=== PATIENT | female | born 1970 | race Caucasian/White ===

== ENCOUNTER 2018-09-17 10:55 | Observation (INO) | payer OTHER ==
--- NOTE | 2018-09-16 21:49 | PDGENHP ---
History and Physical - Chief Complaint LEFT HIP PAIN - History of Present Illness Diagnosis: 1. 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 ~Sylvia enjoys skiing, snowboarding, skinning uphill, mountain biking, runn. Lida's~left~hip pain started early~2017, with~some~recalled trauma or injury , and with no~previous complaints. Was on a short 3 mile run and noticed that L hip all of a sudden was sore.~Sylviadoes not have~a known history of hip dysplasia. Presentation today is of~anterior~left~hip pain - deep, groin. ~The hip~does~ wake her~at night and does not~click and catch on her. Sitting~does not present a problem~for her.~Sylviadoes~report suffering from lower back pain episodes. Sylviahas not~participated in physical therapy and has not~tried other conservative measures including - only has reduced activity level.~She~has not~ received sufficient symptomatic improvement. Sylviahas~utilized medication for pain management, including NSAID.~Sylvia has used medication for a couple of months. Sylviahas occasional~issues with the~right~hip. ~ Sylviaunderstands that she~has a hip and pelvis problem which should be researched and wishes to get a better understanding of her~hip status, followed by an establishment of a treatment strategy, hoping she~would be able to get back to her~well being active life. History: Past medical history:~~ Patient~~has a past medical history of Asthma; Asymptomatic varicose veins; Asymptomatic varicose veins; and Motion sickness. She also has no past medical history of Arthritis; Arthritis; Diabetes mellitus (HC code); Diabetes mellitus (HC code); Hearing loss; Hearing loss; Hyperlipidemia; Hyperlipidemia; Hypertension; Hypertension; Seizures (HC code); Seizures (HC code); Sickle cell anemia (HC code); Sickle cell anemia (HC code); Syncope and collapse; Syncope and collapse; Vision abnormalities; or Vision abnormalities. Relevant familial history:~mother had a PE in 30s Past surgical history:~ L3-S1~anterior and~posterior spinal fusion 2015 R lateral meniscectomy by Jovan 12/14 Bone spur removal from heel as teenager Ovarian cysts removal 1998 Breast augmentation 2013 Sylivadenies problematic issues with general anesthesia in the past. I have reviewed, verified and agree with the past medical, surgical, family and social history. Current Medications:~has a current medication list which includes the following prescription(s): ibuprofen. ALLERGIES:~is allergic to chlorhexidine towelette and penicillins. Objective: Physical Examination: Sylviais 5~feet 5~inches tall and weighs 130~Lbs. Lida~is AAO x3; she~is well-nourished, in NAD. Skin is warm and dry. ~Breathing is non-labored. ~CV with RRR by pulse. Abdomen is soft, NTND. Currently,~she~walks with a normal~gait. Trendelenburg sign is~negative~and proprioception is normal,~both~sides. She~presents with mild~signs of joint laxity. Beightons Score:~3 She~is fit looking. ~~ Lower spine examination is~negative~for sciatic or femoral nerve irritation with negative~SLR &~femoral stretch tests. Range of motion of the spine is normal~for flexion, extension, and rotations, with no~associated pain. Strength, Sensation and pulses are~normal -~bilaterally Ankles and knees exams are~normal~and no~mal-alignment is evident. She~has no leg length discrepancy. Thigh circumference is~symmetric~with no evidence for muscle atrophy~on both~ sides. Hip ROM (degrees): FL ER At 90~hip FL IR At 90~hip FL AB AD EX IR Neutral hip ER Neutral hip R 110 40 35 30 10 10 50 35 L 105 40 15 30 5 10 40 30 Specific hip and pelvis tests: Impingement Test NATALIE Roll Add. Longus R ++ ++ Negative ++ L +++ +++ Negative ++ Glut. Med ITB Posterior Imp R Negative 5/5 strength Negative 5/5 strength Negative L Negative 5/5 strength Negative 5/5 strength Negative Squeeze test measured~normal Bony Symphysis pubis is~pain free~to touch while concentric activity of the rectus abdominis, does not~produce pain at its insertion. Ilio Psos specific tests are~positive for pain during cycling for~the left hip~ and remarkable for painful snap HF has~pain~the left hip. Lateral and posterior~capsule tenderness on the left and posterior on the right Greater trochanteric burse is~painful~on~both hips~- not reason why here today though Piriformis tests: FAIR is~negative,~with no~local signs of neuritis related to sciatic nerve. SIJs examination is~normal~with normal~NATALIE in relation and local tenderness. Hamstrings tests are~normal~~both hips. On a daily basis, the following percentages reflect~Lida's overall total pain : Deep hip~and hip flexion:~100%~(cannot really distinguish between either for patient) Imaging: Radiology studies which I have personally reviewed, analyzed and measured are below: XR: AP of the hip and pelvis: Performed in a~good~technique Coccyx to pubic symphysis distance~2.3~cm. 0~degrees caudal [place] Lines are~preserved. No~Pathological signs are seen in the Symphysis Pubis. No~Pathological signs are seen at the Ischial tuberosity. ~ Specific measurements show: NSA~ LCE Sourcil~Angle Sharp's angle Lat. Cam Lat. Pincer C.Over~sign Head~Coverage % ATDmm R 128 37 2 34 + N 12:30 88 + L 127 34 3 36 ++ + 12:30 85 + Pos. wall sign ISS NAD ~~Dysplasia Comments R Negative Negative 12.3~mm Negative L Negative Negative 15.2~mm Negative Sclerosis Sup. Lat. OA Cysts Joint Space-WBZ Joint Space-Medial R + Negative Negative 4.6~mm 3.8~mm L + Negative Negative 3.2~mm 4.6~mm X Table lateral: Anterior cam lesion is~seen~on both hips. Alpha Angle: ~ Right~57~degrees (60 on AP) Left~59~degrees (64 degrees on AP) Impression and plan:~ Lida~is a 48 y.o.~active female~suffering from symptomatic Left~hip pain due to Left~Femoroacetabular impingement (JOSE CARLOS) Cam type~causing significant disability to her~and altering her~sport and life activities. Physical examination, imaging, and~her~story correspond with the diagnosis mentioned above. I explained that femoroacetabular impingement (JOSE CARLOS) arises due to a bony or soft tissue conflict between the femur (ball) and acetabulum (socket) caused by an abnormality in the shape of the hip joint. Over time, repetitive impingement can result in damage to the labrum and adjacent surface cartilage within the socket, ultimately giving rise to progressive osteoarthritis of the hip. I explained that although a labral tear can be a source of pain, it is rarely the root of the problem and typically occurs secondary to an underlying abnormality in the shape and mechanics of the hip joint. ~ I reviewed conservative treatment options for JOSE CARLOS including activity modification to avoid positions of impingement, physical therapy, non-steroidal anti-inflammatory medications, and various injections (corticosteroid and PRP) aimed at reducing inflammation in the hip joint or/and preventing dynamic impingement. PRP injections may promote healing and reduce symptoms in certain cases but it will not repair chronically damaged tissue. Although these measures may help to buy time and reduce current level of symptoms, they are not a definitive solution to the problem given the underlying abnormality in the shape of the hip joint. Patients who have failed conservative management and continue to experience symptoms are candidates for hip arthroscopy, a minimally invasive surgery that can definitively address the underlying problem. Hip arthroscopy typically includes treating the labrum with either repair or reconstruction of the torn labrum; as well as addressing the underlying abnormalities by restoring the normal shape to the hip joint. ~If the cartilage is damaged a Microfracture surgical procedure may also be necessary to help stimulate the growth of fibrocartilage. ~If a patient requires a labral reconstruction or a Microfracture, the initial rehabilitation from the surgery may take longer, but the longterm results are typically favorable. I have explained that because of her age and gender, the results of hip arthroscopy are less reproducible/predictable than with younger patients or male patients of the same age. Lida~will review the info presented. In order to obtain more detailed information regarding the alignment, orientation, and shape of the bony hip and pelvis I will order a CT scan to be performed. The results of the CT scan, including femoral torsion and acetabular version measured values and 3D images, will aid me in deciding on the best treatment strategy and surgical pre-planning. In order to better evaluate the soft tissues and cartilage of the hip joint, I will order an MRI scan. We will refer Lida for proper PT to try and improve her symptoms. Sylviais happy with this plan. I have also supplied~her~with handouts, outlining the expected surgical treatment and rehab involved. I wish~Sylviaall the best, ~~ Debi Muñoz MD History Information - Allergies/Home Medication List Allergies/Adverse Reactions: chlorhexidine [From Hibiclens] Allergy (Verified 08/16/18 10:15) Rash Penicillins Allergy (Verified 08/16/18 10:02) anaphylactic Home Medications: Naproxen 08/16/18 [Last Taken Unknown] Probiotic 08/16/18 [Last Taken Unknown] I have personally reviewed and updated: medical history - Social History Smoking Status: Never smoked Review of Systems Review of Systems: Physical Exam Physical Exam:
[2018-09-17] MEDS ORDERED: ACETAMINOPHEN 500 MG TAB PO ONE (11:19)
[2018-09-17] MEDS ORDERED: PREGABALIN 150 MG CAP PO ONE (11:19)
[2018-09-17] MEDS ORDERED: CLINDAMYCIN 900 MG/DEXTROSE 50 ML IV ONE (11:19)
[2018-09-17] MEDS ORDERED: LR 1,000 ML IV ONE (11:21)
[2018-09-17] MEDS ORDERED: MIDAZOLAM 2 MG/2 ML VIAL IVP ONE (14:25)
--- NOTE | 2018-09-17 14:25 | PDANEPAE ---
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 - no cardiac diagnosis and is no longer followed - Pulmonary History Hx COPD: No Hx Asthma/Reactive Airway Disease: Yes Hx Recent Upper Respiratory Infection: No Hx Oxygen in Use at Home: No Hx Sleep Apnea: No Sleep Apnea Screening Result - Last Documented: Negative Pulmonary History Comment: states mild asthma when exercising - Neurologic History Hx Cerebrovascular Accident: No Hx Seizures: No Hx Dementia: No - Endocrine History Hx Diabetes: No - Renal History Hx Renal Disorders: No - Liver History Hx Hepatic Disorders: No - Neurological & Psychiatric Hx Hx Neurological and Psychiatric Disorders: No - Cancer History Hx Cancer: No - Congenital Disorder History Hx Congenital Disorders: No - GI History Hx Gastrointestinal Disorders: No - Other Health History Other Health History: wears glasses. States skin sensitive ("itchy") to the product they used to clean her skin with her last surgery. Thinks it was hibiclens. - Chronic Pain History Chronic Pain: No - Surgical History Prior Surgeries: right knee menuscus repair, 2018. L3-S1 fusion, 2016. right breast lump removed, 2016. breast implants & revisions, 2006. ovarian cysts removed, 1998. right heel spur removed, 1987 ANE Review of Systems Review of systems is: negative Review of Systems: - Exercise capacity METS (RN): 6 METS ANE Patient History - Allergies Allergies/Adverse Reactions: chlorhexidine [From Hibiclens] Allergy (Verified 08/16/18 10:15) Rash Penicillins Allergy (Verified 08/16/18 10:02) anaphylactic - Home Medications Home medications: home medication list seen and reviewed Home Medications: Naproxen 08/16/18 [Last Taken 09/10/18] Probiotic 08/16/18 [Last Taken 09/17/18] - NPO status NPO Since - Liquids (Date): 09/17/18 NPO Since - Liquids (Time): 08:30 NPO Since - Solids (Date): 09/16/18 NPO Since - Solids (Time): 21:00 - Anes Hx Anes Hx: no prior problems - Smoking Hx Smoking Status: Never smoked - Family Anes Hx Family Anes Hx: none Family Hx Anesthesia Complications: none ANE Labs/Vital Signs - Vital Signs Vital Signs: reviewed preoperatively; see RN documention for details Blood Pressure: 135/87 Heart Rate: 78 Respiratory Rate: 16 O2 Sat (%): 99 Height: 165.1 cm Weight: 58.967 kg ANE Physical Exam - Airway Neck exam: FROM Mallampati Score: Class 1 Mouth exam: normal dental/mouth exam - Pulmonary Pulmonary: no respiratory distress - Cardiovascular Cardiovascular: regular rate and rhythym - ASA Status ASA Status: II ANE Anesthesia Plan Anesthesia Plan: general endotracheal anesthesia
[2018-09-17] MEDS ORDERED: BUPIVACAINE 0.25% 30 ML SDV ONE (14:36)
[2018-09-17] MEDS ORDERED: fentaNYL 100 MCG/2 ML INJ ONE (14:42)
[2018-09-17] MEDS ORDERED: DEXAMETHASONE 4 MG/ML VIAL ONE (14:42)
[2018-09-17] MEDS ORDERED: PROPOFOL 200 MG/20 ML VIAL ONE ×3 (14:42→18:47)
[2018-09-17] MEDS ORDERED: ONDANSETRON 4 MG/2 ML VIAL ONE ×4 (14:42→22:19)
[2018-09-17] MEDS ORDERED: LIDOCAINE 2% 100 MG/5 ML SYR ONE (14:42)
[2018-09-17] MEDS ORDERED: SUGAMMADEX SODIUM 200 MG/2 ML VIAL IVP ONE (14:42)
[2018-09-17] MEDS ORDERED: ROCURONIUM 50 MG/5 ML VIAL ONE (14:42)
[2018-09-17] MEDS ORDERED: HYDROmorphONE/DILAUDID 2 MG/ML INJ ONE ×2 (14:42→19:55)
[2018-09-17] MEDS ORDERED: LABETALOL HCL 5 MG/ML 20 ML MDV ONE (17:22)
--- NOTE | 2018-09-17 19:11 | POSTOPPROG ---
Post Op Note Date of Operation: 09/17/18 Surgeon: Ziyad Latham Water Mechanic: Ceci Pickard Anesthesia: GET(General Endotracheal) Pre-op Diagnosis: L hip JOSE CARLOS Post-op Diagnosis: Same Procedure: s/p L hip scope, labral repair, cam resection, capsular repair Inf/Abcess present in the surg proc area at time of surgery?: No EBL: Minimal
[2018-09-17] MEDS ORDERED: ONDANSETRON 4 MG/2 ML VIAL IVP PRN ×2 (19:29→20:42)
[2018-09-17] MEDS ORDERED: fentaNYL 100 MCG/2 ML INJ IVP PRN (19:29)
[2018-09-17] MEDS ORDERED: ACETAMINOPHEN 500 MG TAB PO PRN (19:29)
[2018-09-17] MEDS ORDERED: NALOXONE HCL 0.4 MG/ML INJ IVP PRN (19:29)
[2018-09-17] MEDS ORDERED: HYDROCODONE/APAP 5/325 TAB PO PRN (19:29)
[2018-09-17] MEDS ORDERED: oxyCODONE IR 5 MG TAB PO PRN (19:29)
[2018-09-17] MEDS ORDERED: MEPERIDINE 25 MG/0.5 ML AMP IVP PRN (19:29)
[2018-09-17] MEDS ORDERED: HYDROmorphONE/DILAUDID 2 MG/ML INJ IVP PRN (19:29)
[2018-09-17] MEDS ORDERED: ALBUTEROL 3 ML DEYVIAL IH PRN (19:29)
--- NOTE | 2018-09-17 19:31 | POSTANESTH ---
Post Anesthetic Evaluation Cardiovascular Status: Normal, Stable Respiratory Status: Normal, Stable Level of Consciousness/Mental Status: Can Participate in Eval Pain Control: Adequate, Prn Tx Ordered Nausea/Vomiting Control: Adequate, Prn Tx Ordered Complications Possibly Related to Anesthesia: None Noted
[2018-09-17] MEDS ORDERED: ONDANSETRON DISINTEGRATING 4 MG TAB PO PRN (20:42)
[2018-09-17] MEDS ORDERED: ACETAMINOPHEN 325 MG TAB PO PRN (20:42)
[2018-09-17] MEDS ORDERED: PROMETHAZINE HCL 25 MG/ML INJ IVP PRN (20:42)
[2018-09-17] MEDS ORDERED: HYDROmorphONE/DILAUDID 1 MG/ML INJ IVP PRN (20:42)
[2018-09-17] MEDS ORDERED: HYDROmorphONE/DILAUDID 2 MG TAB PO PRN (20:47)
[2018-09-17] MEDS ORDERED: DIAZEPAM 2 MG TAB PO PRN (20:48)
[2018-09-18 08:27] VITALS: BP 106/56
[2018-09-18] MEDS ORDERED: NAPROXEN SODIUM 220 MG TAB PO SCH (09:00)
--- NOTE | 2018-09-18 12:03 | ASMTLACE ---
LACE Length of stay for Answers: 2 days current admission Acuity / Level of Answers: No Care: Did the patient have an inpatient admission? Comorbidities - select Answers: Other Notes: Asthma all that apply # of Emergency department Answers: 0 visits in the last 6 months Score: 3 Date Signed: 09/18/2018 12:03 PM Electronically Signed By:YESSICA Pro
--- NOTE | 2018-09-18 12:05 | ASMTCMCOM ---
CM Note CM Note Notes: Pt had post op pain after L femoroplasty and labral repair. Pt resides with minor child and spouse. PT rec outpatient. Pt medically stable for d/c, no CM d/c needs identified. Date Signed: 09/18/2018 12:05 PM Electronically Signed By:YESSICA Pro
[2018-09-18] MEDS ORDERED: KETOROLAC 15 MG/1 ML SDV IVP ONE (20:42)
== END 2018-09-18 12:27 | disposition home or self-care (01) ==
LOC: FSGY 10:55 → F3N 20:42
PROVIDERS: ADMIT Physician Assistant; ATTEND Orthopaedic Surgery Sports Medicine
PROC: 0MQM4ZZ Repair Left Hip Bursa and Ligament, Percutaneous Endoscopic Approach (ICD-10-PCS; principal; 2018-09-17 15:15)
PROC: 0QQ74ZZ Repair Left Upper Femur, Percutaneous Endoscopic Approach (ICD-10-PCS; principal; 2018-09-17 15:15)
DX: Q65.89 Other specified congenital deformities of hip (principal); M76.892 Other specified enthesopathies of left lower limb, excluding foot; M24.152 Other articular cartilage disorders, left hip; G89.18 Other acute postprocedural pain; J45.909 Unspecified asthma, uncomplicated; Z98.1 Arthrodesis status
CPT/HCPCS: 29914; 29916; 76001; 97116; 97161; 97530; G0378; C1713; J1100; J1170; J2001; J2250; J2405; J2704; J3010

== ENCOUNTER 2019-02-15 05:55 | Day surgery (SDC) | payer OTHER ==
--- NOTE | 2019-02-14 21:49 | PDGENHP ---
History and Physical - Chief Complaint Bilateral Hip Pain - History of Present Illness 1. Right~Femoroacetabular impingement (JOSE CARLOS) Cam type with labral tear 2. 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 ~Sylvia enjoys skiing, snowboarding, skinning uphill, mountain biking, running. Lida's~hip pain started early~2017, with~some~recalled trauma or injury, and with~no~previous complaints.~Was on a short 3 mile run and noticed that L hip all of a sudden was sore.~Sylviadoes not have~a known history of hip dysplasia. Presentation today is of~anterior~hip pain - deep, groin. ~The hip~does~wake her ~at night and~does not~click and catch on~her. Sitting~does not present a problem~for her.~Sylviadoes~report suffering from lower back pain episodes. Sylviahas not~participated in physical therapy and has not~tried other conservative measures including - only has reduced activity level.~Vaishnavi~has not~ received sufficient symptomatic improvement. Sylviahas~utilized medication for pain management, including NSAID.~Sylvia has used medication for a couple of months. Sylviahas occasional~issues with the~right~hip. ~ Sylviaunderstands that~vaishnavi~has a hip and pelvis problem which should be researched and wishes to get a better understanding of~her~hip status, followed by an establishment of a treatment strategy, hoping~vaishnavi~would be able to get back to~her~well being active life. History: Past medical history:~~ Patient~~has a past medical history of Asthma; Asymptomatic varicose veins; Asymptomatic varicose veins; and Motion sickness. She also has no past medical history of Arthritis; Arthritis; Diabetes mellitus (HC code); Diabetes mellitus (HC code); Hearing loss; Hearing loss; Hyperlipidemia; Hyperlipidemia; Hypertension; Hypertension; Seizures (HC code); Seizures (HC code); Sickle cell anemia (HC code); Sickle cell anemia (HC code); Syncope and collapse; Syncope and collapse; Vision abnormalities; or Vision abnormalities. Relevant familial history:~mother had a PE in 30s Past surgical history:~ L3-S1~anterior and~posterior spinal fusion 2016 R lateral meniscectomy by Jovan 12/14 Bone spur removal from heel as teenager Ovarian cysts removal 1998 Breast augmentation 2013 Left Hip Arthroscopy 2017 Sylviadenies problematic issues with general anesthesia in the past. I have reviewed, verified and agree with the past medical, surgical, family and social history. Current Medications:~has a current medication list which includes the following prescription(s): ibuprofen. ALLERGIES:~is allergic to chlorhexidine towelette and penicillins. Objective: Physical Examination: Sylviais 5~feet~5~inches tall and weighs~130~Lbs. Sylviais AAO x3; she~is well-nourished, in NAD. Skin is warm and dry. ~Breathing is non-labored. ~CV with RRR by pulse. Abdomen is soft, NTND. Currently,~she~walks with a~normal~gait. Trendelenburg sign is~negative~and proprioception~is normal,~both~sides. She~presents~with mild~signs of joint laxity.~Beightons Score:~3 She~is fit looking. ~~ Lower spine examination is~negative~for sciatic or femoral nerve irritation with negative~SLR &~femoral stretch tests. Range of motion of the spine is normal~for flexion, extension, and rotations,~with no~associated pain. Strength, Sensation and pulses are~normal -~bilaterally Ankles and knees exams are~normal~and~no~mal-alignment is evident.~ She~has~no leg length discrepancy. Thigh circumference is~symmetric~with no evidence for muscle atrophy~on both~ sides. Hip ROM (degrees): FL ER At 90~hip FL IR At 90~hip FL AB AD EX IR Neutral hip ER Neutral hip R 110 40 35 30 10 10 50 35 L 105 40 15 30 5 10 40 30 Specific hip and pelvis tests: Impingement Test NATALIE Roll Add. Longus R ++ ++ Negative ++ L +++ +++ Negative ++ Glut. Med ITB Posterior Imp R Negative 5/5 strength Negative 5/5 strength Negative L Negative 5/5 strength Negative 5/5 strength Negative Squeeze test measured~normal Bony Symphysis pubis is~pain free~to touch while concentric activity of the rectus abdominis, does not~produce pain at its insertion. Ilio Psos specific tests are~positive for pain during cycling for~the left hip~ and remarkable for painful snap HF has~pain~the left hip. Lateral and posterior~capsule tenderness on the left and posterior on the right Greater trochanteric burse is~painful~on~both hips~- not reason why here today though Piriformis tests: FAIR is~negative,~with no~local signs of neuritis related to sciatic nerve. SIJs examination is~normal~with~normal~NATALIE in relation and local tenderness. Hamstrings tests are~normal~~both hips. On a daily basis, the following percentages reflect~Lida's overall total pain : Deep hip~and hip flexion:~100%~(cannot really distinguish between either for patient) Imaging: Radiology studies which I~have personally reviewed, analyzed and measured are below: XR: AP of the hip and pelvis: Performed in a~good~technique Coccyx to pubic symphysis distance~2.3~cm. 0~degrees caudal [place]~Lines are preserved. No~Pathological signs are seen in the Symphysis Pubis.~ No~Pathological signs are seen at the Ischial~tuberosity. ~ Specific measurements show: NSA~ LCE Sourcil~Angle Sharp's angle Lat. Cam Lat. Pincer C.Over~sign Head~Coverage % ATDmm R 128 37 2 34 + N 12:30 88 + L 127 34 3 36 ++ + 12:30 85 + Pos. wall sign ISS NAD ~~Dysplasia Comments R Negative Negative 12.3~mm Negative L Negative Negative 15.2~mm Negative Sclerosis Sup. Lat. OA Cysts Joint Space-WBZ Joint Space-Medial R + Negative Negative 4.6~mm 3.8~mm L + Negative Negative 3.2~mm 4.6~mm X Table lateral: Anterior cam lesion is~seen~on both hips. Alpha Angle: ~ Right~57~degrees (60 on AP) Left~59~degrees (64 degrees on AP) Impression and plan:~ Lida~is a~48 y.o.~active female~suffering from symptomatic~hip pain due to ~ Femoroacetabular impingement (JOSE CARLOS) Cam type~causing significant disability to~ her~and altering~her~sport and life activities. Physical examination, imaging, and~her~story correspond with the diagnosis mentioned above. I explained that femoroacetabular impingement (JOSE CARLOS) arises due to a bony or soft tissue conflict between the femur (ball) and acetabulum (socket) caused by an abnormality in the shape of the hip joint. Over time, repetitive impingement can result in damage to the labrum and adjacent surface cartilage within the socket, ultimately giving rise to progressive osteoarthritis of the hip. I explained that although a labral tear can be a source of pain, it is rarely the root of the problem and typically occurs secondary to an underlying abnormality in the shape and mechanics of the hip joint. ~ I reviewed conservative treatment options for JOSE CARLOS including activity modification to avoid positions of impingement, physical therapy, non-steroidal anti-inflammatory medications, and various injections (corticosteroid and PRP) aimed at reducing inflammation in the hip joint or/and preventing dynamic impingement. PRP injections may promote healing and reduce symptoms in certain cases but it will not repair chronically damaged tissue. Although these measures may help to buy time and reduce current level of symptoms, they are not a definitive solution to the problem given the underlying abnormality in the shape of the hip joint. Patients who have failed conservative management and continue to experience symptoms are candidates for hip arthroscopy, a minimally invasive surgery that can definitively address the underlying problem. Hip arthroscopy typically includes treating the labrum with either repair or reconstruction of the torn labrum; as well as addressing the underlying abnormalities by restoring the normal shape to the hip joint. ~If the cartilage is damaged a Microfracture surgical procedure may also be necessary to help stimulate the growth of fibrocartilage. ~If a patient requires a labral reconstruction or a Microfracture, the initial rehabilitation from the surgery may take longer, but the lobsterman results are typically favorable. I have explained that because of her age and gender, the results of hip arthroscopy are less reproducible/predictable than with younger patients or male patients of the same age. Lida~will review the info presented. In order to obtain more detailed information regarding the alignment, orientation, and shape of the bony hip and pelvis I will order a CT scan to be performed. The results of the CT scan, including femoral torsion and acetabular version measured values and 3D images, will aid me in deciding on the best treatment strategy and surgical pre-planning. In order to better evaluate the soft tissues and cartilage of the hip joint, I will order an MRI scan. We will refer Lida for proper PT to try and improve her symptoms. Lida~is happy with this plan. I have also supplied~her~with handouts, outlining the expected surgical treatment and rehab involved. I wish~Lida~all the best, ~~ Debi Muñoz MD History Information - Allergies/Home Medication List Allergies/Adverse Reactions: chlorhexidine [From Hibiclens] Allergy (Verified 08/16/18 10:15) Rash oxycodone [From OxyContin] Allergy (Verified 02/05/19 16:06) Vomiting Penicillins Allergy (Verified 08/16/18 10:02) anaphylactic Home Medications: Herbals/Supplements -Info Only 1 ea PO DAILY #0 08/16/18 [Last Taken Unknown] Naproxen Sodium [Aleve 220 MG (*)] 220 mg PO BID PRN #0 08/16/18 [Last Taken ] Albuterol [Proventil Inhaler HFA (*)] 1 - 2 puffs IH DAILY PRN 09/18/18 [Last Taken Unknown] I have personally reviewed and updated: medical history - Social History Smoking Status: Never smoked Review of Systems Review of Systems: Physical Exam Physical Exam:
[2019-02-15] MEDS ORDERED: ACETAMINOPHEN 500 MG TAB PO ONE (06:04)
[2019-02-15] MEDS ORDERED: ceFAZolin 2 GM/DEXTROSE 100 ML IV ONE (06:04)
[2019-02-15] MEDS ORDERED: LR 1,000 ML IV ONE (06:05)
[2019-02-15] MEDS: PREGABALIN 150 MG CAP PO ONE ×2 (06:29→08:45)
[2019-02-15] MEDS ORDERED: MIDAZOLAM 2 MG/2 ML VIAL ONE (07:09)
[2019-02-15] MEDS ORDERED: KETOROLAC 30 MG/1 ML SDV ONE (07:17)
[2019-02-15] MEDS ORDERED: ROCURONIUM 100 MG/10 ML VIAL ONE (07:17)
[2019-02-15] MEDS ORDERED: ONDANSETRON 4 MG/2 ML VIAL ONE ×3 (07:17→16:15)
[2019-02-15] MEDS ORDERED: fentaNYL 100 MCG/2 ML INJ ONE ×4 (07:17→16:15)
[2019-02-15] MEDS ORDERED: DEXAMETHASONE 4 MG/ML VIAL ONE ×2 (07:17)
[2019-02-15] MEDS ORDERED: PROPOFOL/EMULSION 500 MG/50 ML BOTTLE IV ONE ×9 (07:17→12:49)
[2019-02-15] MEDS ORDERED: LIDOCAINE 2% 5 ML SDV ONE (07:18)
[2019-02-15] MEDS ORDERED: BUPIVACAINE/EPI 0.5% 30 ML SDV ONE (07:18)
[2019-02-15] MEDS ORDERED: EPINEPHrine 30 MG/30 ML MDV (0.1 MG/0.1 ML) ONE (07:18)
[2019-02-15] MEDS ORDERED: SUCCINYLCHOLINE CHLORIDE 200 MG/10 ML SYR IVP ONE (07:23)
--- NOTE | 2019-02-15 07:55 | PDANEPAE ---
ANE History of Present Illness b hip scope ANE Past Medical History - Cardiovascular History Hx Hypertension: No Hx Arrhythmias: No Hx Chest Pain: Yes Hx Coronary Artery / Peripheral Vascular Disease: No Hx CHF / Valvular Disease: No Hx Palpitations: No Cardiovascular History Comment: had some c/o chest pain in 2016 and saw a rapid outsole stitcher - no cardiac diagnosis and is no longer followed - Pulmonary History Hx COPD: No Hx Asthma/Reactive Airway Disease: Yes Hx Recent Upper Respiratory Infection: No Hx Oxygen in Use at Home: No Hx Sleep Apnea: No Sleep Apnea Screening Result - Last Documented: Negative Pulmonary History Comment: states mild asthma when exercising - Neurologic History Hx Cerebrovascular Accident: No Hx Seizures: No Hx Dementia: No - Endocrine History Hx Diabetes: No Hypothyroid: No Hyperthyroid: No Obesity: no - Renal History Hx Renal Disorders: No - Liver History Hx Hepatic Disorders: No - Neurological & Psychiatric Hx Hx Neurological and Psychiatric Disorders: No - Cancer History Hx Cancer: No - Congenital Disorder History Hx Congenital Disorders: No - GI History GERD: no Hx Gastrointestinal Disorders: No - Other Health History Other Health History: wears glasses. States skin sensitive ("itchy") to the product they used to clean her skin with her last surgery. Thinks it was hibiclens. - Chronic Pain History Chronic Pain: No - Surgical History Prior Surgeries: right knee menuscus repair, 2018. L3-S1 fusion, 2016. right breast lump removed, 2016. breast implants & revisions, 2006. ovarian cysts removed, 1998. right heel spur removed, 1987 ANE Review of Systems Review of Systems: - Exercise capacity Exercise capacity: >=4 METS METS (RN): 6 METS ANE Patient History - Allergies Allergies/Adverse Reactions: chlorhexidine [From Hibiclens] Allergy (Verified 08/16/18 10:15) Rash oxycodone [From OxyContin] Allergy (Verified 02/05/19 16:06) Vomiting Penicillins Allergy (Verified 08/16/18 10:02) anaphylactic - Home Medications Home medications: home medication list seen and reviewed Home Medications: Herbals/Supplements -Info Only 1 ea PO DAILY #0 08/16/18 [Last Taken Unknown] Naproxen Sodium [Aleve 220 MG (*)] 220 mg PO BID PRN #0 08/16/18 [Last Taken ] Albuterol [Proventil Inhaler HFA (*)] 1 - 2 puffs IH DAILY PRN 09/18/18 [Last Taken Unknown] - NPO status NPO Status: no food or drink >8 hours NPO Since - Liquids (Date): 02/14/19 NPO Since - Liquids (Time): 20:00 NPO Since - Solids (Date): 02/14/19 NPO Since - Solids (Time): 20:00 - Anes Hx Anes Hx: post operative nausea and vomiting - Smoking Hx Smoking Status: Never smoked - Family Anes Hx Family Hx Anesthesia Complications: none ANE Labs/Vital Signs - Vital Signs Blood Pressure: 127/82 Heart Rate: 85 Respiratory Rate: 16 O2 Sat (%): 98 Height: 165.1 cm Weight: 58.967 kg ANE Physical Exam - Airway Mallampati Score: Class 2 Mouth exam: normal dental/mouth exam - Pulmonary Pulmonary: no respiratory distress - Cardiovascular Cardiovascular: regular rate and rhythym - ASA Status ASA Status: II ANE Anesthesia Plan Anesthesia Plan: general endotracheal anesthesia
[2019-02-15] MEDS ORDERED: MIDAZOLAM 2 MG/2 ML VIAL IVP ONE (08:09)
[2019-02-15] MEDS ORDERED: ALBUMIN 5% 250 ML BOTTLE IV ONE ×2 (08:13)
[2019-02-15] MEDS ORDERED: METOPROLOL TARTRATE 5 MG/5 ML INJ ONE (12:11)
[2019-02-15] MEDS ORDERED: hydrALAZINE 20 MG/ML VIAL ONE (12:36)
[2019-02-15] MEDS ORDERED: ALBUTEROL 3 ML DEYVIAL IH PRN (13:18)
[2019-02-15] MEDS ORDERED: ONDANSETRON 4 MG/2 ML VIAL IVP PRN (13:18)
[2019-02-15] MEDS ORDERED: LR 500 ML IV PRN (13:18)
[2019-02-15] MEDS ORDERED: NALOXONE HCL 0.4 MG/ML INJ IVP PRN (13:18)
[2019-02-15] MEDS ORDERED: PROMETHAZINE HCL 25 MG/ML INJ IVP PRN (13:18)
[2019-02-15] MEDS ORDERED: SUGAMMADEX SODIUM 200 MG/2 ML VIAL IVP ONE (13:25)
--- NOTE | 2019-02-15 13:57 | POSTOPPROG ---
Post Op Note Date of Operation: 02/15/19 Surgeon: Ziyad Latham Branch Services Manager: Dr. Stewart Anesthesia: GET(General Endotracheal) Pre-op Diagnosis: Right JOSE CARLOS; Left Hip Pain Post-op Diagnosis: Right JOSE CARLOS; Left Hip Pain Procedure: Bilateral Hip Arthroscopy Inf/Abcess present in the surg proc area at time of surgery?: No
[2019-02-15] MEDS: fentaNYL 100 MCG/2 ML INJ IVP PRN ×3 (14:47→16:18)
[2019-02-15] MEDS ORDERED: HYDROmorphONE/DILAUDID 2 MG/ML INJ ONE (14:49)
[2019-02-15] MEDS: HYDROmorphONE/DILAUDID 2 MG/ML INJ IVP PRN ×2 (14:51→15:07)
[2019-02-15 17:01] VITALS: BP 110/68
== END 2019-02-15 17:30 | disposition home or self-care (01) ==
LOC: FSGY 05:55
PROVIDERS: ATTEND Orthopaedic Surgery Sports Medicine
PROC: 0SB94ZZ Excision of Right Hip Joint, Percutaneous Endoscopic Approach (ICD-10-PCS; principal; 2019-02-15 07:15)
PROC: 0SQB4ZZ Repair Left Hip Joint, Percutaneous Endoscopic Approach (ICD-10-PCS; principal; 2019-02-15 07:15)
PROC: 0SPB0JZ Removal of Synthetic Substitute from Left Hip Joint, Open Approach (ICD-10-PCS; principal; 2019-02-15 07:15)
PROC: 0SBB4ZZ Excision of Left Hip Joint, Percutaneous Endoscopic Approach (ICD-10-PCS; principal; 2019-02-15 07:15)
PROC: 0SQ94ZZ Repair Right Hip Joint, Percutaneous Endoscopic Approach (ICD-10-PCS; principal; 2019-02-15 07:15)
DX: M25.851 Other specified joint disorders, right hip (principal); M25.852 Other specified joint disorders, left hip; M24.151 Other articular cartilage disorders, right hip; M24.152 Other articular cartilage disorders, left hip
CPT/HCPCS: C1713; J0171; J0330; J0360; J0690; J1100; J1170; J1885; J2250; J2405; J2704; J3010; P9041